=== PATIENT | female | born 1980 | race Two or more races ===

== ENCOUNTER 2020-03-04 13:15 | Inpatient (IN) | payer OTHER ==
[~2020-03-04] VITALS: Ht 167.6 cm; Wt 95.3 kg
[2020-03-24] MEDS ORDERED: PRENATAL CAPLE1 EAC1 PO (17:56)
[2020-03-24] MEDS ORDERED: PEPCID AC20 MG PO (17:57)
== END 2020-03-27 12:21 | disposition home or self-care (01) | DRG 807 ==
LOC: OB/GYN 03-24 13:15 → LDR 03-24 17:09 → OB/GYN 03-25 14:40
PROVIDERS: ADMIT Obstetrics & Gynecology; ATTEND Obstetrics & Gynecology
PROC: 3E033VJ Introduction of Other Hormone into Peripheral Vein, Percutaneous Approach (ICD-10-PCS; 2020-03-24)
PROC: 4A1HXFZ Monitoring of Products of Conception, Cardiac Rhythm, External Approach (ICD-10-PCS; 2020-03-24)
PROC: 10E0XZZ Delivery of Products of Conception, External Approach (ICD-10-PCS; principal; 2020-03-25)
PROC: 3E0P7VZ Introduction of Hormone into Female Reproductive, Via Natural or Artificial Opening (ICD-10-PCS; 2020-03-25)
DX: O70.1 Second degree perineal laceration during delivery (principal); Z37.0 Single live birth; Z3A.40 40 weeks gestation of pregnancy; Z20.828 Contact with and (suspected) exposure to other viral communicable diseases

== ENCOUNTER → 2020-03-20 | Outpatient (CLI) | payer OTHER ==
[~2020-03-20] MED LIST: PEPCID AC20 MG PO; PRENATAL CAPLE1 EAC1 PO
== END | disposition home or self-care (01) ==
LOC: NST 13:10
PROVIDERS: ATTEND Obstetrics & Gynecology
DX: Z34.83 Encounter for supervision of other normal pregnancy, third trimester (principal)

== ENCOUNTER 2020-03-24 09:20 | Outpatient (CLI) | payer OTHER ==
[2020-03-24] MEDS ORDERED: PRENATAL CAPLE1 EAC1 PO (17:56)
[2020-03-24] MEDS ORDERED: PEPCID AC20 MG PO (17:57)
== END 2020-03-24 09:45 | disposition home or self-care (01) ==
LOC: NST 09:20
PROVIDERS: ATTEND Obstetrics & Gynecology Maternal & Fetal Medicine
DX: Z34.83 Encounter for supervision of other normal pregnancy, third trimester (principal)